=== PATIENT | female | born 1980 | race African-American/Black ===

== ENCOUNTER 2018-11-30 01:29 | Inpatient (IN) | payer MEDICAID ==
[~2018-11-30] VITALS: Ht 162.6 cm; Wt 79.4 kg
[2018-11-30 03:26] LABS: CHLORIDE 113 mEq/L (98-107)
[2018-11-30 03:35] LABS: BASOPHILS % 0.8 % (0.0-2.0); EOSINOPHILS % 1.9 % (0.0-5.0); HEMATOCRIT. 28.4 % (36.0-48.0); HEMOGLOBIN. 8.9 g/dL (12.0-16.0); LYMPHOCYTES % 35.3 % (20.0-50.0); MEAN CORPUSCULAR HEMOGLOBIN 25.6 pg (28.0-32.0); MONOCYTES % 7.9 % (2.0-8.0); NEUTROPHILS % 54.1 % (40.0-76.0); PLATELET 306 x1000/uL (130-400); RED BLOOD CELL COUNT 3.47 mill/uL (4.2-5.4); RED CELL DISTRIBUTION WIDTH 22.5 % (11.6-14.6)
[2018-11-30 03:54] LABS: ETHANOL BLOOD 307 mg/dL
[2018-11-30 04:22] LABS: PLATELET ESTIMATE NORMAL
[2018-11-30] MEDS ORDERED: ASPIRIN 81MG TABLET PO ONE (04:30)
[2018-11-30 04:55] LABS: CLARITY URINE CLOUDY (CLEAR); COLOR URINE YELLOW (YELLOW); KETONES URINE TRACE (NEGATIVE); LEUKOCYTE ESTERASE URINE 1+ (NEGATIVE); NITRITE URINE NEGATIVE (NEGATIVE); OCCULT BLOOD URINE 1+ (NEGATIVE); PROTEIN URINE 1+ (NEGATIVE)
[2018-11-30 05:05] LABS: *AMPHETAMINES SCREEN URINE NEGATIVE (NEGATIVE); *BARBITURATES SCREEN URINE NEGATIVE (NEGATIVE); *BENZODIAZEPINES SCREEN URINE NEGATIVE (NEGATIVE); *COCAINE SCREEN URINE NEGATIVE (NEGATIVE); METHADONE URINE SCREEN NEGATIVE (NEGATIVE)
[2018-11-30 05:06] LABS: CANNABINOID URINE SCREEN NEGATIVE (NEGATIVE); OPIATES URINE SCREEN NEGATIVE (NEGATIVE); PHENCYCLIDINE URINE SCREEN NEGATIVE (NEGATIVE)
[2018-11-30] MEDS ORDERED: CEPHALEXIN 250MG CAPSULE PO ONE (05:30)
[2018-11-30 07:09] LABS: CREATINE KINASE 98 IU/L (26-192)
[2018-11-30 07:10] LABS: CREATINE KINASE MB FRACTION < 1.0 ng/mL (0.5-3.6)
[2018-11-30 07:54] LABS: HCG SCREEN NEGATIVE
[2018-11-30 08:30] VITALS: BP 161/96
[2018-11-30] MEDS ORDERED: HYDROCODONE/ACETAMINOPHEN 5/325MG TABLET PO PRN (09:00)
[2018-11-30] MEDS ORDERED: DOCUSATE SODIUM 100MG CAPSULE PO PRN (09:00)
[2018-11-30] MEDS ORDERED: LORAZEPAM 0.5MG TABLET PO PRN (09:00)
[2018-11-30] MEDS ORDERED: ONDANSETRON HCL 4MG/2ML INJ IV PRN (09:00)
[2018-11-30] MEDS ORDERED: IPRATROPIUM/ALBUTEROL 0.5-3(2.5)MG/3ML NEB INH PRN (09:00)
[2018-11-30] MEDS ORDERED: ACETAMINOPHEN 325MG TABLET PO PRN (09:00)
[2018-11-30] MEDS: CLONIDINE 0.1MG TABLET PO PRN ×2 (09:39→16:04)
[2018-11-30 10:01] VITALS: BP 161/96
[2018-11-30] MEDS ORDERED: POTASSIUM CHLORIDE 20MEQ TABLET SR PO SCH (10:30)
[2018-11-30 11:43] VITALS: BP 142/93
[2018-11-30] MEDS: AMLODIPINE 2.5MG TABLET PO SCH ×2 (11:44→21:07)
[2018-11-30 11:47] LABS: PHOSPHORUS 2.5 mg/dL (2.5-4.9)
[2018-11-30 12:00] VITALS: BP 145/89
[2018-11-30 16:00] VITALS: BP 160/90
[2018-11-30 20:00] VITALS: BP 194/105
[2018-11-30 20:12] LABS: TOTAL IRON BINDING CAPACITY 447 ug/dL (250-450)
[2018-11-30 20:24] LABS: FOLIC ACID (FOLATE) SERUM 7.9 ng/mL (>5.38)
[2018-12-01] VITALS: BP 165/97
[2018-12-01] MEDS: CLONIDINE 0.1MG TABLET PO PRN ×2 (00:22→05:59)
[2018-12-01 04:00] VITALS: BP 174/103
[2018-12-01 05:48] LABS: BASOPHILS % 0.9 % (0.0-2.0); EOSINOPHILS % 2.2 % (0.0-5.0); HEMATOCRIT. 27.2 % (36.0-48.0); HEMOGLOBIN. 8.6 g/dL (12.0-16.0); LYMPHOCYTES % 28.6 % (20.0-50.0); MEAN CORPUSCULAR HEMOGLOBIN 25.7 pg (28.0-32.0); MEAN CORPUSCULAR VOLUME 81.5 fL (81.0-99.0); MONOCYTES % 8.4 % (2.0-8.0); NEUTROPHILS % 59.9 % (40.0-76.0); PLATELET 257 x1000/uL (130-400); RED BLOOD CELL COUNT 3.33 mill/uL (4.2-5.4); RED CELL DISTRIBUTION WIDTH 22.7 % (11.6-14.6)
[2018-12-01 07:09] LABS: CHLORIDE 106 mEq/L (98-107)
[2018-12-01 08:15] VITALS: BP 182/95
[2018-12-01] MEDS: AMLODIPINE 2.5MG TABLET PO SCH (08:48)
[2018-12-01] MEDS ORDERED: CLONIDINE 0.1MG TABLET PO SCH ×2 (09:30→21:00)
[2018-12-01 12:00] VITALS: BP 139/88
[2018-12-01 14:31] VITALS: BP 130/70
[2018-12-01] MEDS ORDERED: AMLODIPINE 5MG TABLET PO SCH (21:00)
== END 2018-12-01 15:41 | disposition home or self-care (01) | DRG 48 ==
LOC: ER 01:29 → 7WST 04:06 → ENRESERV 07:07
PROVIDERS: ADMIT Internal Medicine; ATTEND Internal Medicine
DX: G90.8 Other disorders of autonomic nervous system (principal); K92.0 Hematemesis; I31.3 Pericardial effusion (noninflammatory); E83.52 Hypercalcemia; A59.9 Trichomoniasis, unspecified; D64.9 Anemia, unspecified; E87.6 Hypokalemia; F10.129 Alcohol abuse with intoxication, unspecified; I10 Essential (primary) hypertension; M94.0 Chondrocostal junction syndrome [Tietze]; R00.0 Tachycardia, unspecified; R80.9 Proteinuria, unspecified; R82.71 Bacteriuria; R31.9 Hematuria, unspecified; R82.4 Acetonuria; R74.0 Nonspecific elevation of levels of transaminase and lactic acid dehydrogenase [LDH]; Y90.8 Blood alcohol level of 240 mg/100 ml or more; Z87.891 Personal history of nicotine dependence; R74.8 Abnormal levels of other serum enzymes
CPT/HCPCS: 36415; 71045; 80048; 80061; 80076; 80305; 80320; 82550; 82553; 82607; 82728; 82746; 83036; 83540; 83550; 83735; 84100; 84443; 84484; 84703; 85379; 86850; 86900; 93005; 93306; 93970; 99285; G0480

== ENCOUNTER 2018-12-02 04:26 | Emergency (ER) | payer MEDICAID ==
[~2018-12-02] VITALS: Ht 172.7 cm; Wt 93.0 kg
[2018-12-02] MEDS ORDERED: SODIUM CHLORIDE 0.9% 1,000 ML IV ONE ×2 (05:16→06:00)
[2018-12-02 05:43] LABS: BASOPHILS % 1.5 % (0.0-2.0); EOSINOPHILS % 2.2 % (0.0-5.0); HEMATOCRIT. 30.3 % (36.0-48.0); HEMOGLOBIN. 9.4 g/dL (12.0-16.0); LYMPHOCYTES % 32.1 % (20.0-50.0); MEAN CORPUSCULAR HEMOGLOBIN 25.7 pg (28.0-32.0); MEAN CORPUSCULAR VOLUME 82.8 fL (81.0-99.0); MEAN PLATELET VOLUME 9.1 fl (7.4-10.4); MONOCYTES % 8.6 % (2.0-8.0); NEUTROPHILS % 55.6 % (40.0-76.0); PLATELET 309 x1000/uL (130-400); RED BLOOD CELL COUNT 3.66 mill/uL (4.2-5.4); RED CELL DISTRIBUTION WIDTH 23.5 % (11.6-14.6)
[2018-12-02 05:44] VITALS: BP 92/56
[2018-12-02 05:52] LABS: CHLORIDE 107 mEq/L (98-107)
[2018-12-02] MEDS ORDERED: CALCIUM GLUCONATE 100MG/ML 10ML VIAL IV ONE (06:00)
[2018-12-02 06:02] LABS: ETHANOL BLOOD 300 mg/dL
== END 2018-12-02 06:22 | disposition left against medical advice (07) ==
LOC: ER 04:26
DX: T46.1X1A Poisoning by calcium-channel blockers, accidental (unintentional), initial encounter (principal); T45.8X1A Poisoning by other primarily systemic and hematological agents, accidental (unintentional), initial encounter; T51.8X1A Toxic effect of other alcohols, accidental (unintentional), initial encounter; I10 Essential (primary) hypertension; Y92.89 Other specified places as the place of occurrence of the external cause
CPT/HCPCS: 36415; 80053; 80307; 80320; 80329; 84484; 85025; 93005; 99284; J0610; J7030; Z7610; G0480

== ENCOUNTER 2019-05-16 02:46 | Inpatient (IN) | payer MEDICAID ==
[~2019-05-16] VITALS: Ht 162.6 cm; Wt 86.2 kg
[2019-05-16] VITALS (12 sets, daily range): BP systolic 109–149; BP diastolic 54–87
[2019-05-16] MEDS ORDERED: ASPIRIN 81MG TABLET PO ONE (03:45)
[2019-05-16 04:07] LABS: EOSINOPHILS % 1.2 % (0.0-5.0); HEMATOCRIT. 34.7 % (36.0-48.0); HEMOGLOBIN. 10.9 g/dL (12.0-16.0); LYMPHOCYTES % 23.2 % (20.0-50.0); MEAN CORPUSCULAR HEMOGLOBIN 24.9 pg (28.0-32.0); MEAN CORPUSCULAR VOLUME 78.9 fL (81.0-99.0); MEAN PLATELET VOLUME 9.4 fl (7.4-10.4); MONOCYTES % 6.9 % (2.0-8.0); NEUTROPHILS % 67.7 % (40.0-76.0); PLATELET 344 x1000/uL (130-400); RED BLOOD CELL COUNT 4.39 mill/uL (4.2-5.4); RED CELL DISTRIBUTION WIDTH 21.9 % (11.6-14.6)
[2019-05-16 04:14] LABS: CHLORIDE 104 mEq/L (98-107)
[2019-05-16 04:18] LABS: D-DIMER < 0.19 mg/L FEU (<0.50); PARTIAL THROMBOPLASTIN TIME 29.1 sec (23.4-31.0); PROTHROMBIN TIME 10.2 sec (9.6-11.0)
[2019-05-16 04:21] LABS: HCG SCREEN NEGATIVE
[2019-05-16] MEDS ORDERED: ENOXAPARIN 100MG/ML SYR SUBCUT ONE (04:45)
[2019-05-16] MEDS: NITROGLYCERIN 0.4MG TABLET SL SL PRN ×2 (05:11→07:05)
[2019-05-16] MEDS ORDERED: HYDROCODONE/ACETAMINOPHEN 10/325MG TABLET PO PRN (06:15)
[2019-05-16] MEDS ORDERED: MORPHINE SULFATE 2 MG/ML CPJ (NOT FOR IM USE) IV PRN (06:15)
[2019-05-16] MEDS ORDERED: GUAIFENESIN 200MG/10ML SUGAR FREE UDC PO PRN (06:15)
[2019-05-16] MEDS ORDERED: DIPHENHYDRAMINE 50MG/ML VIAL IV PRN (06:15)
[2019-05-16] MEDS ORDERED: ONDANSETRON HCL 4MG/2ML INJ IV PRN (06:15)
[2019-05-16] MEDS ORDERED: DOCUSATE SODIUM 100MG CAPSULE PO PRN (06:15)
[2019-05-16] MEDS ORDERED: MAGNESIUM/ALUMINUM HYDROXIDE/SIMETHICONE 30ML UDC PO PRN (06:15)
[2019-05-16] MEDS ORDERED: CLONIDINE 0.1MG TABLET PO PRN (06:15)
[2019-05-16] MEDS ORDERED: ACETAMINOPHEN 325MG TABLET PO PRN (06:15)
[2019-05-16] MEDS ORDERED: IPRATROPIUM/ALBUTEROL 0.5-3(2.5)MG/3ML NEB HHN PRN (06:15)
[2019-05-16] MEDS ORDERED: LORAZEPAM 2MG/ML CPJ IV PRN (06:15)
[2019-05-16] MEDS ORDERED: HYDRALAZINE 20MG/ML VIAL IV PRN (06:15)
[2019-05-16] MEDS ORDERED: NA PHOS,M-B/NA PHOS,DI-BA ENEMA 118ML PR PRN (06:15)
[2019-05-16] MEDS ORDERED: ENOXAPARIN 40MG/0.4ML SYR SUBCUT SCH (09:15)
[2019-05-16] MEDS: ASPIRIN 81MG EC TABLET PO SCH (09:55)
[2019-05-16] MEDS ORDERED: SODIUM CHLORIDE 0.9% 1,000 ML IV ONE (11:15)
[2019-05-16] MEDS: SODIUM CHLORIDE 0.9% INJ 3ML FLUSH IVF SCH ×2 (13:23→22:12)
[2019-05-16 15:58] LABS: CLARITY URINE CLOUDY (CLEAR); COLOR URINE DARK YELLOW (YELLOW); KETONES URINE 1+ (NEGATIVE); LEUKOCYTE ESTERASE URINE 1+ (NEGATIVE); NITRITE URINE NEGATIVE (NEGATIVE); OCCULT BLOOD URINE NEGATIVE (NEGATIVE); PH URINE 5.5 (4.5-8.0); PROTEIN URINE 2+ (NEGATIVE); SPECIFIC GRAVITY URINE 1.033 (1.005-1.030)
[2019-05-16 16:11] LABS: *BARBITURATES SCREEN URINE NEGATIVE (NEGATIVE); *BENZODIAZEPINES SCREEN URINE NEGATIVE (NEGATIVE)
[2019-05-16 16:12] LABS: *AMPHETAMINES SCREEN URINE NEGATIVE (NEGATIVE); *COCAINE SCREEN URINE NEGATIVE (NEGATIVE); CANNABINOID URINE SCREEN NEGATIVE (NEGATIVE); METHADONE URINE SCREEN NEGATIVE (NEGATIVE); OPIATES URINE SCREEN NEGATIVE (NEGATIVE); PHENCYCLIDINE URINE SCREEN NEGATIVE (NEGATIVE)
[2019-05-16 17:33] LABS: CREATINE KINASE MB FRACTION 1.7 ng/mL (0.5-3.6)
[2019-05-17] VITALS (12 sets, daily range): BP systolic 120–158; BP diastolic 63–94
[2019-05-17 00:07] LABS: CREATINE KINASE MB FRACTION 1.7 ng/mL (0.5-3.6)
[2019-05-17] MEDS: SODIUM CHLORIDE 0.9% INJ 3ML FLUSH IVF SCH ×2 (05:52→14:00)
[2019-05-17] MEDS: ASPIRIN 81MG EC TABLET PO SCH (08:43)
[2019-05-17] MEDS ORDERED: ENOXAPARIN 30MG/0.3ML SYR SUBCUT SCH (09:00)
[2019-05-17 09:29] LABS: BASOPHILS % 0.4 % (0.0-2.0); EOSINOPHILS % 2.1 % (0.0-5.0); HEMATOCRIT. 28.3 % (36.0-48.0); LYMPHOCYTES % 32.3 % (20.0-50.0); MEAN CORPUSCULAR HEMOGLOBIN 24.8 pg (28.0-32.0); MEAN PLATELET VOLUME 9.5 fl (7.4-10.4); NEUTROPHILS % 56.2 % (40.0-76.0); PLATELET 233 x1000/uL (130-400); RED BLOOD CELL COUNT 3.63 mill/uL (4.2-5.4); RED CELL DISTRIBUTION WIDTH 21.3 % (11.6-14.6)
[2019-05-17 10:00] LABS: CHLORIDE 105 mEq/L (98-107)
[2019-05-17 10:10] LABS: LDL CHOLESTEROL 96 mg/dL (5-100)
[2019-05-17 10:11] LABS: HDL CHOLESTEROL 76 mg/dL (40-59); T4 FREE 1.06 ng/dL (0.76-1.46)
== END 2019-05-17 16:03 | disposition home or self-care (01) | DRG 203 ==
LOC: ER 02:46 → 3WST 05:06 → ENRESERV 07:11
PROVIDERS: ADMIT Internal Medicine; ATTEND Internal Medicine
DX: R07.89 Other chest pain (principal); I11.9 Hypertensive heart disease without heart failure; F10.10 Alcohol abuse, uncomplicated; F41.9 Anxiety disorder, unspecified; Z91.19 Patient's noncompliance with other medical treatment and regimen; Z82.49 Family history of ischemic heart disease and other diseases of the circulatory system
CPT/HCPCS: 36415; 71045; 80048; 80061; 80305; 80320; 81003; 82550; 82553; 83735; 83880; 84439; 84443; 84484; 84703; 85379; 93005; 93306; 93970; 96372; 99291; J1650; J2405; G0480

== ENCOUNTER 2021-08-02 04:44 | Emergency (ER) | payer MEDICAID ==
[~2021-08-02] VITALS: Ht 170.2 cm; Wt 100.0 kg
[2021-08-02 06:57] LABS: CHLORIDE 107 mEq/L (98-107)
[2021-08-02 07:14] LABS: PARTIAL THROMBOPLASTIN TIME 27.8 sec (23.4-31.0); PROTHROMBIN TIME 10.6 sec (9.6-11.0)
[2021-08-02 07:19] LABS: BASOPHILS % 0.8 % (0.0-2.0); HEMATOCRIT. 28.6 % (36.0-48.0); HEMOGLOBIN. 8.8 g/dL (12.0-16.0); LYMPHOCYTES % 25.6 % (20.0-50.0); MEAN CORPUSCULAR HEMOGLOBIN 26.8 pg (28.0-32.0); MEAN CORPUSCULAR VOLUME 87.1 fL (81.0-99.0); MEAN PLATELET VOLUME 8.9 fl (7.4-10.4); MONOCYTES % 7.8 % (2.0-8.0); NEUTROPHILS % 63.8 % (40.0-76.0); PLATELET 294 x1000/uL (130-400); RED BLOOD CELL COUNT 3.28 mill/uL (4.2-5.4); RED CELL DISTRIBUTION WIDTH 24.5 % (11.6-14.6)
[2021-08-02 07:57] LABS: HCG SCREEN NEGATIVE
[2021-08-02 08:00] VITALS: BP 136/72
[2021-08-02 09:19] LABS: PLATELET ESTIMATE NORMAL
== END 2021-08-02 08:00 | disposition left against medical advice (07) ==
LOC: ER 05:05
DX: N93.9 Abnormal uterine and vaginal bleeding, unspecified (principal); R93.89 Abnormal findings on diagnostic imaging of other specified body structures; N83.202 Unspecified ovarian cyst, left side; I10 Essential (primary) hypertension
CPT/HCPCS: 36415; 76830; 76856; 80048; 81025; 84703; 85025; 99284